=== PATIENT | female | born 1995 | race Two or more races ===

== ENCOUNTER 2024-10-15 10:36 | Outpatient (CLI) | payer OTHER | END 2024-10-15 10:38 | disposition home or self-care (01) | LOC: PRENATAL 10:36 | PROVIDERS: ATTEND Obstetrics & Gynecology Maternal & Fetal Medicine | DX: O36.80X0 Pregnancy with inconclusive fetal viability, not applicable or unspecified (principal); Z36.82 Encounter for antenatal screening for nuchal translucency; Z14.8 Genetic carrier of other disease; O24.419 Gestational diabetes mellitus in pregnancy, unspecified control; O14.90 Unspecified pre-eclampsia, unspecified trimester; Z3A.14 14 weeks gestation of pregnancy ==

== ENCOUNTER → 2024-12-01 09:07 | Outpatient (CLI) | payer OTHER | END | disposition home or self-care (01) | LOC: PRENATAL 09:07 | PROVIDERS: ATTEND Obstetrics & Gynecology Maternal & Fetal Medicine | DX: O35.3XX0 Maternal care for (suspected) damage to fetus from viral disease in mother, not applicable or unspecified (principal); O44.00 Complete placenta previa NOS or without hemorrhage, unspecified trimester; O24.419 Gestational diabetes mellitus in pregnancy, unspecified control; O14.90 Unspecified pre-eclampsia, unspecified trimester; Z3A.20 20 weeks gestation of pregnancy ==

== ENCOUNTER 2025-01-21 08:34 | Outpatient (CLI) | payer OTHER ==
[~2025-01-21 08:34] MED LIST: HUMULIN N100 UNIT/2 SUBCUTANEO; INSULIN SYRING1 EA29 SUBCUTANEO
== END 2025-01-21 08:35 | disposition home or self-care (01) ==
LOC: PRENATAL 08:34
PROVIDERS: ATTEND Obstetrics & Gynecology Maternal & Fetal Medicine
DX: O26.849 Uterine size-date discrepancy, unspecified trimester (principal); O36.8199 Decreased fetal movements, unspecified trimester, other fetus; O28.3 Abnormal ultrasonic finding on antenatal screening of mother; O24.419 Gestational diabetes mellitus in pregnancy, unspecified control; O14.90 Unspecified pre-eclampsia, unspecified trimester; Z3A.28 28 weeks gestation of pregnancy